=== PATIENT | female | born 1985 ===

== ENCOUNTER 2023-01-13 16:43 | Emergency (ER) | payer MEDICAID, SELFPAY ==
[2023-01-13 17:38] LABS: MANUAL DIFF FLAG NO
[2023-01-13 17:39] LABS: Basophils Absolute Auto 0.1 X10*3/uL (0.0-0.2); Basophils Percent Auto 0.7 % (0-2); Eosinophils Absolute Auto 0.2 X10*3/uL (0.0-0.4); Eosinophils Percent Auto 1.5 % (0-4); Hematocrit 39.5 % (37.0-47.0); Hemoglobin 13.2 g/dl (12.0-16.0); Imm Gran Abs Auto 0.04 X10*3/uL (0.00-0.03); Imm Gran Pct Auto 0.4 % (0.0-0.4); Lymphocytes Absolute Auto 3.7 X10*3/uL (1.2-4.9); Lymphocytes Percent Auto 34.3 % (20-40); Mean Corpuscular HGB Conc 33.4 g/dl (31.0-35.0); Mean Corpuscular Hemoglobin 29.2 pg (27.0-33.0); Mean Corpuscular Volume 87.4 fL (80.0-98.0); Mean Platelet Volume 9.2 fL (9.4-12.3); Monocytes Absolute Auto 1.1 X10*3/uL (0.1-1.2); Monocytes Percent Auto 9.8 % (2-11); Neutrophils Absolute Auto 5.7 x10*3/uL (2.0-8.3); Neutrophils Percent Auto 53.3 % (45-73); Platelet Count 367 X10*3/uL (160-400); Red Blood Count 4.52 X10*6/uL (4.20-5.50); Red Cell Distribution Width 13.7 % (11.0-16.0); White Blood Count 10.8 X10*3/uL (4.8-10.8)
[2023-01-13 17:46] LABS: Prothrombin Time 12.1 SEC (11.1-13.3)
[2023-01-13 17:49] LABS: Partial Thromboplastin Time 34.5 SEC (26.0-36.4)
[2023-01-13 17:53] LABS: Alanine Aminotransferase 7 U/L (0-31); Albumin Level 3.9 g/dL (3.5-5.0); Alkaline Phosphatase 65 U/L (39-117); Anion Gap 16 (12-20); Aspartate Amino Transferase 10 U/L (5-31); Bilirubin Direct < 0.2 mg/dL (0.0-0.5); Bilirubin Total 0.2 mg/dL (0.0-1.0); Blood Urea Nitrogen 6 mg/dL (9-16); Calcium 9.3 mg/dL (8.4-10.2); Carbon Dioxide 21 mmol/L (22-29); Chloride 106 mmol/L (96-108); Estimated Glomerular Filt Rate > 60; Glucose Random 90 mg/dL (60-115); Magnesium 2.1 mg/dL (1.6-2.6); Potassium 3.9 mmol/L (3.3-5.1); Sodium 139 mmol/L (135-145); Total Protein 6.9 g/dL (6.5-8.0)
[2023-01-13 17:59] LABS: HCG Quantitative < 2 mIU/mL
[2023-01-13 18:07] VITALS: BP 131/67; PULSE 70; RESP 18; TEMP 36.1; O2SAT 99; BMI 24.7
--- NOTE | 2023-01-13 18:07 | ED_ITS ---
HPI - Female Genitourinary General Chief complaint: Vaginal Bleeding Stated complaint: vag bleeding 30 days/lower back pain Time Seen by Provider: 01/13/23 20:39 Source: other History of Present Illness HPI Narrative: I reviewed the triage note, patient has eloped, triage note states that patient had what she felt was vaginal bleeding since December 06 with lower back pain and dizziness. Related Data Previous Rx's Medication Instructions Recorded cefdinir 300 mg capsule 300 mg PO BID 7 days #14 caps 01/13/23 Allergies Allergy/AdvReac Type Severity Reaction Status Date / Time No Known Allergies Allergy Verified 01/13/23 17:21 [facility] Social History Social History Advance Directives: No Advance Directives Information Provided: No Physical Exam Vital Signs: Vital Signs: Last Vital Signs Temp 97.8 F 01/13/23 20:39 Pulse 57 01/13/23 20:39 Resp 18 01/13/23 20:39 BP 116/75 01/13/23 20:39 Pulse Ox 98 01/13/23 20:39 O2 Del Method Room Air 01/13/23 20:39 BMI result Body Mass Index 24.7 Course Course Course Narrative: RME - 37 yo female presenting to the ER for evaluation of heavy vaginal bleeding since December 06. History of irregular menstrual cycles but never prolonged menses. Associated with dizziness, weakness and fatigue. No pelvic pain. +low back pain. Plan: labs, coags, UA Medical Decision Making Medical Decision Making MDM Narrative: Reviewed all investigations and there is no leukocytosis or left shift and no anemia or thrombocytopenia. Coagulation studies are grossly within normal limits and chemistry indices do not demonstrate any electrolyte or liver enzyme abnormalities, there is no KHUSHBU. Beta hCG is negative, however the urinalysis is grossly positive and suspect given the back pain patient likely has a pyelonephritis. However, patient has eloped but will contact patient and inform her that a prescription for antibiotics has been sent. There is no evidence to suggest prolonged vaginal bleeding and likely the blood was coming from patient's urinary tract infection. There is no evidence of anemia and on review of vital signs she is neither tachypneic nor is she tachycardic. There is no evidence of febrile status and will send antibiotics to her pharmacy there is documented no known allergies. Nursing staff is tried twice to call the patient but no answer and voicemail was not working. Lab Data 01/13/23 17:33 01/13/23 17:33 Labs: Lab Results 01/13/23 01/13/23 01/13/23 Range/Units 17:33 17:33 17:33 WBC 10.8 (4.8-10.8) X10*3/uL RBC 4.52 (4.20-5.50) X10*6/uL Hgb 13.2 (12.0-16.0) g/dl Hct 39.5 (37.0-47.0) % MCV 87.4 (80.0-98.0) fL MCH 29.2 (27.0-33.0) pg MCHC 33.4 (31.0-35.0) g/dl RDW 13.7 (11.0-16.0) % Plt Count 367 (160-400) X10*3/uL MPV 9.2 L (9.4-12.3) fL Immature Gran % (Auto) 0.4 (0.0-0.4) % Neut % (Auto) 53.3 (45-73) % Lymph % (Auto) 34.3 (20-40) % [place] % (Auto) 9.8 (2-11) % Eos % (Auto) 1.5 (0-4) % Baso % (Auto) 0.7 (0-2) % Lymph # (Auto) 3.7 (1.2-4.9) X10*3/uL [place] # (Auto) 1.1 (0.1-1.2) X10*3/uL Eos # (Auto) 0.2 (0.0-0.4) X10*3/uL Baso # (Auto) 0.1 (0.0-0.2) X10*3/uL Abs Immat Gran (auto) 0.04 H (0.00-0.03) X10*3/uL Absolute Neuts (auto) 5.7 (2.0-8.3) x10*3/uL Absolute Nucleated RBC 0.000 (0.0-0.012) X10*3/uL Nucleated RBC % (auto) 0.0 (0.0-0.2) /100WBC PT 12.1 (11.1-13.3) SEC INR 1.0 (0.9-1.1) APTT 34.5 (26.0-36.4) SEC Sodium 139 (135-145) mmol/L Potassium 3.9 (3.3-5.1) mmol/L Chloride 106 (96-108) mmol/L Carbon Dioxide 21 L (22-29) mmol/L Anion Gap 16 (12-20) BUN 6 L (9-16) mg/dL Creatinine 0.66 (0.5-1.4) mg/dL Estim Creat Clear Calc TNP Estimated GFR > 60 Random Glucose 90 (60-115) mg/dL Calcium 9.3 (8.4-10.2) mg/dL Magnesium 2.1 (1.6-2.6) mg/dL Total Bilirubin 0.2 (0.0-1.0) mg/dL Direct Bilirubin < 0.2 (0.0-0.5) mg/dL AST 10 (5-31) U/L ALT 7 (0-31) U/L Alkaline Phosphatase 65 (39-117) U/L Total Protein 6.9 (6.5-8.0) g/dL Albumin 3.9 (3.5-5.0) g/dL Beta HCG, Quant < 2 mIU/mL Urine Color Urine Appearance Urine pH (5.0-9.0) Ur Specific [place] (1.005-1.025) Urine Protein (Neg-Trace) mg/dL Urine Glucose (UA) (Negative) mg/dL Urine Ketones (Negative) mg/dL Urine Blood (Negative) Urine Nitrite (Negative) Ur Leukocyte Esterase (Negative) Urine RBC (0-2) /HPF Urine WBC (0-5) /HPF Ur Squamous Epith Cells (0-2) /HPF Urine Bacteria (None Seen) Hyaline Casts (0-2) /LPF 01/13/23 01/13/23 Range/Units 17:33 18:14 WBC (4.8-10.8) X10*3/uL RBC (4.20-5.50) X10*6/uL Hgb (12.0-16.0) g/dl Hct (37.0-47.0) % MCV (80.0-98.0) fL MCH (27.0-33.0) pg MCHC (31.0-35.0) g/dl RDW (11.0-16.0) % Plt Count (160-400) X10*3/uL MPV (9.4-12.3) fL Immature Gran % (Auto) (0.0-0.4) % Neut % (Auto) (45-73) % Lymph % (Auto) (20-40) % [place] % (Auto) (2-11) % Eos % (Auto) (0-4) % Baso % (Auto) (0-2) % Lymph # (Auto) (1.2-4.9) X10*3/uL [place] # (Auto) (0.1-1.2) X10*3/uL Eos # (Auto) (0.0-0.4) X10*3/uL Baso # (Auto) (0.0-0.2) X10*3/uL Abs Immat Gran (auto) (0.00-0.03) X10*3/uL Absolute Neuts (auto) (2.0-8.3) x10*3/uL Absolute Nucleated RBC (0.0-0.012) X10*3/uL Nucleated RBC % (auto) (0.0-0.2) /100WBC PT (11.1-13.3) SEC INR (0.9-1.1) APTT (26.0-36.4) SEC Sodium (135-145) mmol/L Potassium (3.3-5.1) mmol/L Chloride (96-108) mmol/L Carbon Dioxide (22-29) mmol/L Anion Gap (12-20) BUN (9-16) mg/dL Creatinine (0.5-1.4) mg/dL Estim Creat Clear Calc Estimated GFR Random Glucose (60-115) mg/dL Calcium (8.4-10.2) mg/dL Magnesium (1.6-2.6) mg/dL Total Bilirubin (0.0-1.0) mg/dL Direct Bilirubin (0.0-0.5) mg/dL AST (5-31) U/L ALT (0-31) U/L Alkaline Phosphatase (39-117) U/L Total Protein (6.5-8.0) g/dL Albumin (3.5-5.0) g/dL Beta HCG, Quant < 2 mIU/mL Urine Color [place] A Urine Appearance Cloudy Urine pH 6.0 (5.0-9.0) Ur Specific [place] 1.010 (1.005-1.025) Urine Protein 30 (1+) H (Neg-Trace) mg/dL Urine Glucose (UA) Negative (Negative) mg/dL Urine Ketones Negative (Negative) mg/dL Urine Blood Large (3+) H (Negative) Urine Nitrite Negative (Negative) Ur Leukocyte Esterase Trace H (Negative) Urine RBC >20 H (0-2) /HPF Urine WBC 6-10 H (0-5) /HPF Ur Squamous Epith Cells 11-20 (0-2) /HPF Urine Bacteria 2+ (None Seen) Hyaline Casts 0-2 (0-2) /LPF Discharge Plan Discharge Clinical Impression: Pyelonephritis Patient Disposition: Elopement Instructions: Kidney Infection (ED) Prescriptions: New cefdinir 300 mg capsule 300 mg PO BID 7 Days Qty: 14 0RF
[2023-01-13 18:32] LABS: Appearance Urine Cloudy; Color Urine Orange; Glucose Urine UA Negative (Negative); Leukocyte Esterase Urine Trace (Negative); Nitrite Urine Negative (Negative); UMIC TRIGGER UACC YES; Urine Blood Large (3+) (Negative); Urine Ketones Negative (Negative); Urine Protein 30 (1+) mg/dL (Neg-Trace)
[2023-01-13 18:33] LABS: Bacteria Urine 2+ (None Seen); Hyaline Casts Urine 0-2 /LPF (0-2); RBC Urine >20 /HPF (0-2); UACC Culture Trigger YES
[2023-01-13 20:39] VITALS: BP 116/75; PULSE 57; RESP 18; TEMP 36.6; O2SAT 98
[2023-01-13 21:25] LABS: HCG Quantitative < 2 mIU/mL
--- NOTE | 2023-01-13 21:42 | PC.NURSE ---
upon entry of the room, pt was not in room. not in testing rooms, pt eloped. Dr. Tye sy.
== END 2023-01-13 21:44 | disposition left against medical advice (07) ==
PROVIDERS: Physician Assistant; Emergency Provider Student in an Organized Health Care Education/Training Program
DX: N12 Tubulo-interstitial nephritis, not specified as acute or chronic (principal); M54.50 Low back pain, unspecified
CPT/HCPCS: 36415; 80048; 80076; 81001; 83735; 84702; 85025; 85610; 85730; 87086; 99283

== ENCOUNTER 2024-02-08 16:42 | Emergency (ER) | payer OTHER, SELFPAY ==
[2024-02-08 16:56] VITALS: BP 146/92; PULSE 76; RESP 18; TEMP 36.7; O2SAT 98; BMI 28.3
--- NOTE | 2024-02-08 16:59 | ED.GENADULT ---
HPI - General Adult General Chief complaint: Skin/Abscess/Foreign Body Stated complaint: left breast pain abscess Time Seen by Provider: 02/08/24 19:08 Source: patient Mode of arrival: ambulatory Limitations: no limitations History of Present Illness HPI narrative: Patient is a 39 year old female who presents to the emergency department for evaluation of persistent pain to the left breast. She states that she has been dealing with a recurrent abscess to her left breast. Reports onset earlier this year approximately 5 months. She has been treated with multiple courses of antibiotics. By her account her most recent course of antibiotics was approximately 4 weeks ago. She states that she had a superficial abscess that was drained and then she was referred to see a surgeon through the breast specialty center of [facility] (received referral from their Emergency Department). Reports that there was discussion of surgical procedure for drainage, however when it was determined that she is an active cigarette smoker she was advised that she needed to have smoking cessation for 6 weeks prior to any procedure. She states that she continues to have significant pain to the breast and she is requesting surgical drainage at this time as well as pain control. She denies fevers or chills, denies any active drainage. Related Data Previous Rx's ?Medication ?Instructions ?Recorded cefdinir 300 mg capsule 300 mg PO BID 7 days #14 caps 01/13/23 cephalexin 500 mg capsule 500 mg PO QID #21 caps 02/08/24 oxycodone 5 mg tablet 5 mg PO Q6H PRN pain #10 tabs 02/08/24 Allergies Allergy/AdvReac Type Severity Reaction Status Date / Time No Known Allergies Allergy Verified 02/08/24 16:59 Review of Systems Review of Systems: Yes all other systems are reviewed and are negative PMFSH Past Medical History Attestation statement: The following information was validated with the patient. Source: old records reviewed Social History Social History Advance Directives: No Advance Directives Information Provided: No Do you have a plan to hurt others: No Plan Physical Exam ED Vital Signs: Vital Signs - 24 hr 02/08/24 16:56 02/08/24 19:18 Temperature 98.1 F 97.8 F Pulse Rate 76 72 Respiratory Rate 18 16 Blood Pressure 146/92 H 108/78 Pulse Oximetry 98 97 Oxygen Delivery Method Room Air Room Air BMI result Body Mass Index 28.3 Appearance: Alert.?Oriented to person, place and time. No acute distress.?Normal affect. Neck: Normal inspection.? Neck supple.?? CVS: Heart sounds normal. Normal heart rate and rhythm.? Pulses normal.? Chest: Performed with compound filler, ED debug technician, area of erythema approximately 5 cm X 3 cm to the left breast around 06:00 o'clock-09:00 o'clock of the areola that does not extend. There is no dimpling or induration it is warm to touch. No obvious superficial abscess or area of fluctuance no active drainage. There is a firmness below this area that feels deeper.? No axillary lymphadenopathy. Right breast without palpable masses or lumps. Respiratory: No respiratory distress.? Lung sounds clear to auscultation bilaterally?? Abdomen: Soft and non-tender. Normoactive bowel sounds. ? Skin: Skin warm and dry.? Normal skin color.? Extremities: No lower extremity edema.? No calf ttp? Neuro: Moves all extremities spontaneously. Sensation intact bilaterally. Ambulates with normal steady gait. Course Course Course Narrative: RME performed by Brenda Cary PA-C. Patient is a 39 year old assigned female at presenting to the emergency department with a left breast abscess. Patient states she has been dealing with a left breast abscess for months, has been on multiple antibiotic courses, and was set to have surgery with a [facility] surgeon. Patient states that the surgeon changed her mind after she found out she is a smoker. Detailed physical exam and review of systems are deferred to the tool room supervisor. Labs ordered. Patient placed back in the waiting room pending room availability and results. Medical Decision Making Medical Decision Making MDM Narrative: Patient is a 39-year-old female who presents emergency department for evaluation of persistent left breast abscess as per HPI. At the time of my examination she has an area of erythema approximately 5 cm X 3 cm to the left breast around 06:00 o'clock-09:00 o'clock of the areola that does not extend. There is no dimpling or induration it is warm to touch. No obvious superficial abscess or area of fluctuance no active drainage. There is a firmness below this area that feels deeper. We discussed having an ultrasound imaging in the emergency department for evaluation of abscess versus possible breast mass, she declines at this time. She would like emergent surgical drainage. At this time I do not see indication for such. Serum labs were obtained she has no leukocytosis she is not anemic no thrombocytopenia. Chemistries revealing no electrolyte derangement or KHUSHBU. Mildly elevated CRP at 1.39 with normal ESR. I am concerned that there is a superficial cellulitis for which I will treat her with cephalexin, provided with short course of oxycodone to use for pain unrelieved by acetaminophen/ibuprofen and instructed on precautions with use, mass that was reviewed there are no current conflicts. I did provide her as well for contact information with the general surgeon office associated with [facility] as she would like to discuss a 2nd opinion for drainage. Overall appears well considering, she is notably uncomfortable and she was offered a dose of oxycodone in the emergency department, does not have constitutional symptoms or signs of systemic illness at this time. Stable for discharge home Differential Diagnosis Differential Diagnoses: The differential diagnosis associated with the presentation includes (See narrative above) Admission/Observation Consideration of admission/observation: Escalation of care including admission/observation considered Lab Data MDM Lab Attestation statement: I reviewed the patient's lab results. (See narrative above) 02/08/24 17:38 02/08/24 17:38 Labs: Lab Results 02/08/24 Range/Units 17:38 WBC 9.6 (4.8-10.8) X10*3/uL RBC 5.07 (4.20-5.50) X10*6/uL Hgb 14.8 (12.0-16.0) g/dl Hct 44.3 (37.0-47.0) % MCV 87.4 (80.0-98.0) fL MCH 29.2 (27.0-33.0) pg MCHC 33.4 (31.0-35.0) g/dl RDW 13.3 (11.0-16.0) % Plt Count 387 (160-400) X10*3/uL MPV 9.7 (9.4-12.3) fL Immature Gran % (Auto) 0.4 (0.0-0.4) % Neut % (Auto) 51.9 (45-73) % Lymph % (Auto) 36.1 (20-40) % [place] % (Auto) 8.6 (2-11) % Eos % (Auto) 2.2 (0-4) % Baso % (Auto) 0.8 (0-2) % Lymph # (Auto) 3.5 (1.2-4.9) X10*3/uL [place] # (Auto) 0.8 (0.1-1.2) X10*3/uL Eos # (Auto) 0.2 (0.0-0.4) X10*3/uL Baso # (Auto) 0.1 (0.0-0.2) X10*3/uL Abs Immat Gran (auto) 0.04 H (0.00-0.03) X10*3/uL Absolute Neuts (auto) 5.0 (2.0-8.3) x10*3/uL Absolute Nucleated RBC 0.000 (0.0-0.012) X10*3/uL Nucleated RBC % (auto) 0.0 (0.0-0.2) /100WBC ESR 11 (0-20) MM/HR Sodium 140 (135-145) mmol/L Potassium 4.1 (3.3-5.1) mmol/L Chloride 105 (96-108) mmol/L Carbon Dioxide 28 (22-29) mmol/L Anion Gap 11 L (12-20) BUN 10 (9-16) mg/dL Creatinine 0.74 (0.5-1.4) mg/dL Estim Creat Clear Calc 93.7 Estimated GFR > 60 Random Glucose 90 (60-115) mg/dL Calcium 9.5 (8.4-10.2) mg/dL Magnesium 2.1 (1.6-2.6) mg/dL Total Bilirubin 0.2 (0.0-1.0) mg/dL AST 15 (5-31) U/L ALT 12 (0-31) U/L Alkaline Phosphatase 76 (39-117) U/L C-Reactive Protein 1.39 H (< or = 0.50) mg/dL Total Protein 7.7 (6.5-8.0) g/dL Albumin 4.4 (3.5-5.0) g/dL Hold Red Top Cancelled Independent Historian Clinical information obtained from an independent historian. History obtained from or confirmed by: Spouse External Record Review External record reviewed: Other (QUARTER DOPER, see narrative above) Prescription Management I considered prescription management with: Pain Medication and Antibiotic Discharge Plan Discharge Clinical Impression: Abscess of breast Patient Disposition: Home, Self-Care Additional Instructions: As discussed, please continue conservative treatment including warm compresses, You can take ibuprofen 200 mg, 3 tablets (600mg) every 6-8 hours as needed for pain, in addition to Tylenol 500 mg, 2 tablets (1,000mg) every 4-6 hours as needed for pain, but not to exceed 3 doses daily (3,000mg).? For plain that is unrelieved by ibuprofen/Tylenol, I have provided a short prescription for oxycodone which has been sent to your pharmacy. This is a narcotic medication. It may be addicting. It can make you drowsy. You should not drive, drink alcohol, or work while taking this medication. I have provided you with contact information for our general surgeons office, you may contact their office tomorrow morning to discuss a new patient appointment for a 2nd opinion. Prescriptions: New oxycodone 5 mg tablet 5 mg PO Q6H PRN (Reason: pain) Qty: 10 0RF Rx Instructions: Partial Fill upon patient request. cephalexin 500 mg capsule 500 mg PO QID Qty: 21 0RF No Action cefdinir 300 mg capsule 300 mg PO BID 7 Days Qty: 14 0RF Referrals: [facility] General Surgeons [Provider Group] Print Language: Macedonian
[2024-02-08 17:52] LABS: MANUAL DIFF FLAG NO
[2024-02-08 17:58] LABS: Basophils Absolute Auto 0.1 X10*3/uL (0.0-0.2); Basophils Percent Auto 0.8 % (0-2); Eosinophils Absolute Auto 0.2 X10*3/uL (0.0-0.4); Eosinophils Percent Auto 2.2 % (0-4); Hematocrit 44.3 % (37.0-47.0); Hemoglobin 14.8 g/dl (12.0-16.0); Imm Gran Abs Auto 0.04 X10*3/uL (0.00-0.03); Imm Gran Pct Auto 0.4 % (0.0-0.4); Lymphocytes Absolute Auto 3.5 X10*3/uL (1.2-4.9); Lymphocytes Percent Auto 36.1 % (20-40); Mean Corpuscular HGB Conc 33.4 g/dl (31.0-35.0); Mean Corpuscular Hemoglobin 29.2 pg (27.0-33.0); Mean Corpuscular Volume 87.4 fL (80.0-98.0); Mean Platelet Volume 9.7 fL (9.4-12.3); Monocytes Absolute Auto 0.8 X10*3/uL (0.1-1.2); Monocytes Percent Auto 8.6 % (2-11); Neutrophils Percent Auto 51.9 % (45-73); Platelet Count 387 X10*3/uL (160-400); Red Blood Count 5.07 X10*6/uL (4.20-5.50); Red Cell Distribution Width 13.3 % (11.0-16.0); White Blood Count 9.6 X10*3/uL (4.8-10.8)
[2024-02-08 18:22] LABS: Alanine Aminotransferase 12 U/L (0-31); Albumin Level 4.4 g/dL (3.5-5.0); Alkaline Phosphatase 76 U/L (39-117); Anion Gap 11 (12-20); Aspartate Amino Transferase 15 U/L (5-31); Bilirubin Total 0.2 mg/dL (0.0-1.0); Blood Urea Nitrogen 10 mg/dL (9-16); C Reactive Protein 1.39 mg/dL (< or = 0.50); Calcium 9.5 mg/dL (8.4-10.2); Carbon Dioxide 28 mmol/L (22-29); Chloride 105 mmol/L (96-108); Creatinine Clr Calc Pharmacy 93.7; Estimated Glomerular Filt Rate > 60; Glucose Random 90 mg/dL (60-115); Magnesium 2.1 mg/dL (1.6-2.6); Potassium 4.1 mmol/L (3.3-5.1); Sodium 140 mmol/L (135-145); Total Protein 7.7 g/dL (6.5-8.0)
[2024-02-08 18:41] LABS: Erythrocyte Sedimentation Rate 11 MM/HR (0-20)
[2024-02-08 19:18] VITALS: BP 108/78; PULSE 72; RESP 16; TEMP 36.6; O2SAT 97
[2024-02-08] MEDS: oxyCODONE HCl Immed Release 5 MG TABLET PO (21:12)
[2024-02-08 21:26] VITALS: BP 108/78; PULSE 72; RESP 16; TEMP 36.6; O2SAT 97
== END 2024-02-08 21:27 | disposition home or self-care (01) ==
PROVIDERS: Physician Assistant Medical; Emergency Provider Internal Medicine
DX: N61.1 Abscess of the breast and nipple (principal); N64.4 Mastodynia; F17.210 Nicotine dependence, cigarettes, uncomplicated; Z79.899 Other long term (current) drug therapy
CPT/HCPCS: 36415; 80053; 83735; 85025; 85652; 86140; 99283

== ENCOUNTER 2024-02-17 09:08 | Outpatient (AMB) | payer OTHER, SELFPAY ==
--- NOTE | 2024-02-17 09:15 | A.OFFVIS_ITS ---
Vital Signs 02/17/24 09:25 Height 5 ft 2 in Weight 156 lb BMI 28.5 BP 132/78 Blood Pressure Location Rt brachial Position Sitting Pulse 71 Intake Visit Reasons: abscess of breast Intake Note: Patient referred for abscess on Lt breast X5m. Keeps getting infected for the past year. Finished cephalexin course. Patient c/o: oozing clear discharge, pressure, pain. Reports hx of same problem on rt br but had gland on nipple extracted in [place] about 7 yrs ago. 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 She has had I&D of this at least on 2 occasions. She is currently completing antibiotic course. She has had antibiotics for several months time with minimal complete response. Interestingly, patient had the same issue with the contralateral right breast and eventually had excision of the cyst/ductal area which resolved the problem. This was performed in [place]. Chart was reviewed and patient evaluated [facility] Family History (Updated 02/17/24 @ 09:21 by ISAIAH Saldaña) Maternal Grandmother Cervical cancer Social History (Updated 02/17/24 @ 09:22 by ISAIAH Saldaña) Alcohol intake: current Alcohol intake frequency: holidays/special occasions only Cigarettes Per Day: 5 Substance Use Type: Marijuana Physical Exam Vital Signs: Last Vital Signs Pulse 71 02/17/24 09:25 BP 132/78 02/17/24 09:25 BMI result Body Mass Index 28.5 Chest Other: Chest breath sounds bilaterally, HS 1 in 2. Right breast within normal limits. Mindy areolar scar from previous surgery noted. Left breast no obvious other mass, discharge, adenopathy or skin changes. Patient has a draining sinus tract at the 10 o'clock position of the Mindy areolar area. Mild erythema. With pressure no obvious purulence drained. 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 Current plan is to treat the patient with antibiotics and the Thera colo off in the arrange for excision of this duct/cyst area of the left breast. Risks, benefits, alternatives of the procedure reviewed with the patient included but not limited to bleeding, infection, recurrence, numbness, pain, scarring and the patient wishes to proceed. All questions answered. Arrangements were made for this. Medications: New cephalexin 500 mg PO TID 30 caps 0RF ibuprofen 800 mg PO Q8H PRN 30 tabs 0RF pain Discontinued cefdinir Discontinued Reason: Patient no longer taking 300 mg PO BID 7 days 14 caps 0RF oxycodone Partial Fill upon patient request. Discontinued Reason: Patient no longer taking 5 mg PO Q6H PRN 10 tabs 0RF pain cephalexin Discontinued Reason: Patient Completed Course 500 mg PO QID 21 caps 0RF Coding Level of Care Code New Pt Level 5 (38594) Diagnoses Breast abscess N61.1 Occlusion of lactiferous duct of left breast N64.89
[2024-02-17 09:25] VITALS: BP 132/78; PULSE 71; BMI 28.5
== END 2024-02-17 09:46 | disposition home or self-care (01) ==
PROVIDERS: Visit Provider Surgery
DX: N61.1 Abscess of the breast and nipple (principal); N64.89 Other specified disorders of breast
CPT/HCPCS: 99204

== ENCOUNTER → 2024-02-17 09:08 | Outpatient (BNVA) | payer OTHER, SELFPAY | PROVIDERS: Visit Provider Surgery | DX: N61.1 Abscess of the breast and nipple (principal); N64.89 Other specified disorders of breast | CPT/HCPCS: 99202 ==

== ENCOUNTER 2024-02-26 07:47 | Outpatient (AMB) | payer OTHER, SELFPAY ==
--- NOTE | 2024-02-26 07:51 | MHC.PC.OV ---
Vital Signs 02/26/24 07:52 Height 5 ft 2 in Weight 155 lb BMI 28.3 BP 104/62 Blood Pressure Location Lt brachial Position Sitting Pulse 60 Pulse Source Pulse Oximeter Pulse Oximetry (%) 98 Oxygen Delivery Method Room Air Intake Visit Reasons: new patient Allergies No Known Allergies Allergy (Verified 02/26/24 08:14) Medication List - Last Reconciled 02/26/24 by Sejal Xavier PA-C cephalexin 500 mg PO TID ibuprofen 800 mg PO Q8H PRN Tobacco use date assessed: 02/26/24 Dental Screening Dental Screen Date: 02/26/24 Did you have a dental visit in the last 12 months?: Yes Did you have a dental problem in the last 6 months where you did not have access to dental care?: No Was dental information given to patient?: Patient has dentist HPI new patient HPI Details 39 year old female coming to the office for the first time. In review of the notes, patient was seen in [facility] 02/08/2024 for left breast pain she has previously been seen by [facility] surgery but patient would have to stop smoking for 6 weeks prior to the procedure. Advised to continue with warm compress and pain management with ibuprofen/tylenol and oxycodone. Advised to follow up with general surgery. Patient was seen by [facility] general surgery and will be booked for drainage and removal of abscess. Patient states she is feeling generally well and has no additional concerns outside of the breast abscess. She states the pain in breast radiates into the chest and armpit. She was previously treated in [place] for anxiety and PTSD with Hydroxyzine and Seroquel and was seeing a counselor regularly. 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 She also was bitten by a dog several years ago and was scheduled to have nasal reconstructive surgery but left [place] before having it done. [facility] Surgical History (Updated 02/26/24 @ 08:16 by Sejal Xavier PA-C) History of mandibular surgery Family History (Updated 02/26/24 @ 07:59 by Jenae Pa CMA) Maternal Grandmother Cervical cancer Mother Addiction to drug Father Addiction to drug Brother No problems noted. Other Mental health disorder Substance use disorder Social History (Updated 02/17/24 @ 09:22 by ISAIAH Saldaña) Housing: Apartment Alcohol intake: current Alcohol intake frequency: holidays/special occasions only Patient Tobacco Use Status: Current everyday Tobacco user Tobacco use type: Cigarette Cigarettes Per Day: 6 e-Cigarette/Vaping Use: Currently Using Second Hand Smoke Exposure: Yes Substance Use Type: Marijuana service: No Current occupational status: employed Current occupation: [employer] Current occupational exposures/hazards: No Cognitive needs: No Hearing needs: No Vision needs: Yes Female Reproductive History Menstrual control method: none Total pregnancies: 0 History of abnormal pap smear: No Questionnaire PHQ-9 Over the last 2 weeks, how often have you been bothered by any of the following problems? 1. Little interest or pleasure in doing things: not at all 2. Feeling down, depressed, or hopeless: not at all 3. Trouble falling or staying asleep, or sleeping too much: not at all 4. Feeling tired or having little energy: not at all 5. Poor appetite or overeating: not at all 6. Feeling bad about yourself - or that you are a failure or have let yourself or your family down: not at all 7. Trouble concentrating on things, such as reading the newspaper or watching television: not at all 8. Moving or speaking so slowly that other people could have noticed. Or the opposite - being so fidgety or restless that you have been moving around a lot more than usual: not at all 9. Thoughts that you would be better off or of hurting yourself in some way: not at all Total score: 0 Depression Screening Interpretation: Negative Depression Screening Done: Yes 33452 - PHQ-9 Billing: Yes Source: Developed by Drs. Praneeth Starks, Emma Betancourt, Rosalio Brar and colleagues, with an educational maxwell from [employer]. Thrive Questionnaire Date Thrive assessed: 02/26/24 I am a: Patient What is your living situation today?: I have a steady place to live Within the past 12 months, did the food you bought not last and you didn't have the money to get more?: Never true Within the past 12 months, did you worry whether your food would run out before you got money to buy more?: Never true Do you have trouble paying for medicines?: No Do you have trouble getting transportation to medical appointments?: No Do you have trouble paying your heating and electricity bill?: No Do you have trouble taking care of your child, family member or friend?: No Do you have trouble with day-to-day activities such as bathing, preparing meals, shopping, managing finances, etc.?: No Are you currently unemployed and looking for a job?: No Are you interested in more education?: No Please select the resources that you would like help with: None Currently or been in a relationship where the following occur: No concerns reported THRIVE Score: 0 AUDIT C Alcohol Use Questionnaire (AUDIT-C) 1. How often do you have a drink containing alcohol?: Monthly or less 2. How many drinks containing alcohol do you have on a typical day when you are drinking?: 1 or 2 3. How often do you have six or more drinks on one occasion?: Never Total Score: 1 STEVENSON-7 AMB Questionnaire STEVENSON-7 Date STEVENSON - 7 assessed: 02/26/24 Feeling nervous, anxious, or on edge: 1 = Several days Not being able to stop or control worryin = Several days Worrying too much about different things: 1 = Several days Trouble relaxin = Several days Being so restless that it is hard to sit still: 1 = Several days Becoming easily annoyed or irritable: 1 = Several days Feeling afraid as if something awful might happen: 1 = Several days Total STEVENSON-7 score (0-4 normal; 5-9 mild; 10-14 moderate; 15-21 severe): 7 Source: Developed by Drs. Praneeth Starks, Emma Betancourt, Rosalio Brar and colleagues, with an educational maxwell from [employer]. STEVENSON-7 Assessment Billing STEVENSON-7 Assessment Tool: STEVENSON-7 Assessment 82579 Review of Systems Const Denies body aches, Denies fatigue, Denies fever(s), Denies frequent falls, Denies headache(s) and Denies weakness Eyes Reports no additional complaints and Denies change in vision ENT Denies dysphagia, Denies dizziness, Denies facial pain, Denies headache(s), Denies nasal congestion and Denies odynophagia Card Denies chest pain, Denies syncope, Denies irregular heart rhythm, Denies leg edema, Denies lightheadedness and Denies dyspnea Resp Denies cough and Denies dyspnea GI Denies constipation, Denies dysphagia, Denies dyspepsia, Reports diarrhea (from ABX), Reports nausea (from ABX), Denies odynophagia and Denies vomiting Denies urinary frequency, Denies dysuria, Denies urinary hesitancy and Denies urinary urgency Musc Denies back pain and Denies myalgias Skin/Breast Reports as per HPI Neuro Denies dizziness, Denies syncope, Denies frequent falls, Denies headache(s) and Denies weakness Psych Reports no additional complaints Endo Denies fatigue Physical exam (Primary Care) Vital Signs: Last Vital Signs Pulse 60 02/26/24 07:52 BP 104/62 02/26/24 07:52 Pulse Ox 98 02/26/24 07:52 Oxygen Delivery Method Room Air 02/26/24 07:52 BMI result Body Mass Index 28.3 Tobacco/Smoking Status: Tobacco use Status Tobacco use date assessed 02/26/24 02/26/24 08:03 Patient Tobacco Use Status Current everyday Tobacco 02/26/24 08:03 Tobacco use type Cigarette 02/26/24 08:03 e-Cigarette/Vaping Use Currently Using 02/26/24 08:03 Are you ready to quit: Yes Tobacco cessation counseling provided: Yes Items discussed: Nicotine replacement Relapse Prevention: discussed the importance of a supportive environment Number of minutes spent counselin CPT code: 55556 - 4-10 Minutes PHQ-9: PHQ-9 Score PHQ-9: Total score 0 02/26/24 08:04 Depression Screening Interpretation: Negative Thrive Assessment: Date of Thrive Assessment Date Thrive assessed 02/26/24 02/26/24 07:53 Currently or been in a relationship where the following occur: No concerns reported Const General: cooperative, healthy appearing, comfortable and no acute distress Orientation/consciousness: patient oriented x3 HENMT Head: Yes normocephalic Ears: hearing grossly normal bilaterally, external ears normal, TM's normal bilaterally and EAC's normal General nose exam: Normal external nose present Face and sinus: Yes normal facial exam and Yes sinuses nontender Mouth: Normal oral and palatal mucosa present and tongue normal Throat: Yes posterior oropharynx normal Eyes General: appearance normal, both eyes and all related structures Conjunctivae: conjunctivae normal Pupils: Equal, round and reactive pupils present EOM: EOMs intact bilaterally and No Nystagmus present Neck Neck: Yes normal visual inspection, Yes full ROM and Yes no lymphadenopathy Chest Other: Tenderness to left side of chest and ribs Resp Effort & Inspection: normal respiratory effort Auscultation: clear to auscultation bilaterally, no crackles, no rales, no rhonchi, no wheezes and breath sounds present Cardio Rate: regular rate Rhythm: regular rhythm Peripheral pulses: radial pulses present and dorsalis pedis present GI Inspection: Yes normal to inspection and No Abdominal wall edema Palpation (GI): Soft to palpation, not firm and nontender Auscultation: normal bowel sounds Rectal Exam - Female: deferred General: Yes no CVA tenderness Back/Spine/Pelvis Back: no CVA tenderness Skin General skin exam: no rashes or lesions noted Neuro General: patient oriented x3 Cranial nerves: Yes Equal, round and reactive pupils present, Yes Midline tongue present, Yes Ability to bilaterally elevate shoulders present and No Nystagmus present Gait exam (Neuro): Normal gait present Extrem General: Yes normal to inspection, Yes full ROM, No no pedal edema and No edema Psych Speech and movement: Normal speech and movement present Affect: normal affect Insight: Good insight present (Psych) Judgement: Good judgement present (Psych) Assessment and Plan Assessment & Plan (1) Breast abscess: Code(s): N61.1 - Abscess of the breast and nipple Plan: Seen by Dr. Villarreal and General surgery and due to be scheduled for surgical drainage and removal of abscess. Blood work up-to-date and did place order for EKG if needed preoperatively. Patient is at moderate risk for procedure due to chronic tobacco use and risk for delayed wound healing and infection. Reviewed with the patient that no surgery is completely free of risk and that this examination is to assist the surgeon in reviewing informed consent. Patient is not currently on any blood thinners or antiplatelet medications advised patient to discontinue NSAIDs 7 days prior to surgery. (2) PTSD (post-traumatic stress disorder): Code(s): F43.10 - Post-traumatic stress disorder, unspecified Plan: Patient was previously seen by counselor and found this to be helpful. Referral to counseling placed today. (3) Anxiety: Code(s): F41.9 - Anxiety disorder, unspecified Plan: Patient was previously on Seroquel and hydroxyzine for anxiety as well as see a counselor. We will start hydroxyzine at this appointment and follow up in 3 months for review of medications. If patient feels anxiety is not well managed we can consider adding Seroquel. (4) Deviated septum: Code(s): J34.2 - Deviated nasal septum Plan: Referral to ENT placed today. Plan This note was constructed using voice recognition software. While every effort has been made to ensure accuracy and legal support specialist, still areas may have been included sometimes these areas may affect the content or meeting of the given symptoms. Total time spent caring for the patient today was 20 minutes. This includes time spent before the visit reviewing the chart, time spent during the visit, and time spent after the visit and documentation. Orders: Orders ECG 12 lead EKG Today Z01.818 - Encounter for other preprocedural examination Referrals Counseling Referral F41.9 - Anxiety disorder, unspecified, F43.10 - Post-traumatic stress disorder, unspecified Ear/Nose/Throat Referral J34.2 - Deviated nasal septum HEAD UP OPERATOR Referral Z00.00 - Encounter for general adult medical examination without abnormal findings Medications: New nicotine 1 patch transdermal DAILY 28 ea 0RF hydroxyzine HCl 25 mg PO BID 60 tabs 0RF anxiety Coding Level of Care Code New Pt Level 3 (74254) New Pt Prev Care 18-39yr(41807 Diagnoses Breast abscess N61.1 PTSD (post-traumatic stress disorder) F43.10 Anxiety F41.9 Deviated septum J34.2 Additional Codes STEVENSON-7 Assessment Billing - STEVENSON-7 Assessment Tool: STEVENSON-7 Assessment 74912 ([id number]) Vital Signs *Quality* - CPT code: 59776 - 4-10 Minutes ([id number])
[2024-02-26 07:52] VITALS: BP 104/62; PULSE 60; O2SAT 98; BMI 28.3
== END 2024-02-26 08:33 | disposition home or self-care (01) ==
DX: Z00.00 Encounter for general adult medical examination without abnormal findings (principal); N61.1 Abscess of the breast and nipple; F43.10 Post-traumatic stress disorder, unspecified; F41.9 Anxiety disorder, unspecified; J34.2 Deviated nasal septum
CPT/HCPCS: 99385

== ENCOUNTER → 2024-02-26 08:45 | Outpatient (REF) | payer OTHER, SELFPAY ==
--- NOTE | 2024-02-26 08:51 | ECG_ITS ---
Test Reason : pre op Blood Pressure : / mmHG Vent. Rate : 052 BPM Atrial Rate : 052 BPM P-R Int : 156 ms QRS Dur : 090 ms QT Int : 450 ms P-R-T Axes : -15 059 002 degrees QTc Int : 418 ms Sinus bradycardia Otherwise normal ECG No previous ECGs available Referred By: Sejal Xavier Electronically Signed By:GILES CHANG
== END ==
LOC: HO.CARD 08:45
DX: Z01.818 Encounter for other preprocedural examination (principal)
CPT/HCPCS: 93005

== ENCOUNTER 2024-03-03 11:12 | Day surgery (SDC) | payer OTHER, SELFPAY ==
--- NOTE | 2024-03-02 11:15 | P.HPSUR_ITS ---
Pre-Procedural Eval Section A - 24 Hr Update-Section A only Date of Service: 03/03/24 The patient is an INPATIENT: No Changes since office visit: No Cold of Flu in the past 2 weeks, No New Medical Problems, No Changes in Medication and No Patient answered all questions Section B - Complete if H&P > 30 days Chief Complaint: Abscess of the breast and nipple Allergies: Allergies Allergy/AdvReac Type Severity Reaction Status Date / Time No Known Allergies Allergy Verified 02/26/24 08:14 Review of Systems Sugical H&P ROS: Negative: Constitution, Cardiovascular, Respiratory, Neurological, Psychiatric, Hem-Onc, Allergic/Immunologic, Gastrointestinal, Genitourinary, Musculoskeletal, Integumentary, Endocrine and Eyes/Ears/Nose/Thr oat Exam Surgical H&P Exam: Normal: HEENT, Normal: Heart, Normal: Lungs, Normal: Extremities, Normal: Abdomen, Normal: Skin and Normal: Neurological Plan I have reviewed the history and physical and performed a pertinent physical examination on my patient. No changes have occurred unless specified. Time Spent With Patient Time: Total time managing care of this patient today ____ minutes.
--- NOTE | 2024-03-03 11:26 | MHC.SHP ---
Pre-Procedural Eval Section A - 24 Hr Update-Section A only Date of Service: 03/03/24 The patient is an INPATIENT: No Changes since office visit: No Cold of Flu in the past 2 weeks, No New Medical Problems, No Changes in Medication and No Patient answered all questions Section B - Complete if H&P > 30 days Chief Complaint: Abscess of the breast and nipple Allergies: Allergies Allergy/AdvReac Type Severity Reaction Status Date / Time No Known Allergies Allergy Verified 02/26/24 08:14 Plan I have reviewed the history and physical and performed a pertinent physical examination on my patient. No changes have occurred unless specified. Time Spent With Patient Time: Total time managing care of this patient today ____ minutes.
[2024-03-03 12:08] VITALS: BMI 27.8
[2024-03-03 12:22] VITALS: BP 103/67; PULSE 68; RESP 16; TEMP 36.6; O2SAT 96
[2024-03-03 12:46] LABS: Urine Pregnancy NEGATIVE (NEGATIVE)
[2024-03-03 12:47] LABS: UPreg QC Valid YES
--- NOTE | 2024-03-03 13:30 | P.CONAN_ITS ---
Documented by User: Chery Tan NP 03/01/24 13:41 HPI - Anesthesia Eval Consult details Narrative: 39yo F for excision of this duct/cyst area of the left breast Medically optimized per PCP [facility] Active Problems Active Problems: All Active Problems Pre-op evaluation (Acute) Deviated septum (Acute) PTSD (post-traumatic stress disorder) (Acute) Anxiety (Acute) Occlusion of lactiferous duct of left breast (Acute) Breast abscess (Acute) Family History Family History (Updated 02/26/24 @ 07:59 by Jenae Pa CMA) Maternal Grandmother Cervical cancer Mother Addiction to drug Father Addiction to drug Brother No problems noted. Other Mental health disorder Substance use disorder Surgical History Surgical History (Updated 02/26/24 @ 08:16 by Sejal Xavier PA-C) History of mandibular surgery Social History Social History (Updated 02/17/24 @ 09:22 by ISAIAH Saldaña) Housing: Apartment Alcohol intake: current Alcohol intake frequency: holidays/special occasions only Patient Tobacco Use Status: Current everyday Tobacco user Tobacco use type: Cigarette Cigarettes Per Day: 5 e-Cigarette/Vaping Use: Currently Using Second Hand Smoke Exposure: Yes Use of substances other than those prescribed or required for medical reasons: Yes Substance Use Type: Marijuana Are you DNR?: No Advance Directives: No Advance Directives Information Provided: Yes service: No Current occupational status: employed Current occupation: [employer] Current occupational exposures/hazards: No Cognitive needs: No Hearing needs: No Vision needs: Yes Meds Allergies Allergy/AdvReac Type Severity Reaction Status Date / Time No Known Allergies Allergy Verified 03/03/24 12:08 Exam Pertinent Lab Results Pertinent Lab Results: Laboratory Tests 02/08/24 17:38 WBC 9.6 Hgb 14.8 Hct 44.3 Plt Count 387 Sodium 140 Potassium 4.1 Chloride 105 BUN 10 Creatinine 0.74 Narrative Narrative: EKG 01/2024 Vent. Rate : 052 BPM Atrial Rate : 052 BPM P-R Int : 156 ms QRS Dur : 090 ms QT Int : 450 ms P-R-T Axes : -15 059 002 degrees QTc Int : 418 ms Sinus bradycardia Otherwise normal ECG No previous ECGs available Assessment and Plan Assessment Anesthesia Assessment: Chart Reviewed Documented by User: Lynda Sandoval DO 03/03/24 13:32 HPI - Anesthesia Eval Consult details Narrative: 39yo F for excision of this duct/cyst area of the left breast Medically optimized per PCP Smoker - 5 cigarettes daily PMFSH Family History Family History (Updated 02/26/24 @ 07:59 by Jenae Pa [employer]LO[employer] POWDER MIXER) Maternal Grandmother Cervical cancer Mother Addiction to drug Father Addiction to drug Brother No problems noted. Other Mental health disorder Substance use disorder Family history of problems with anesthesia: No Surgical History Surgical History (Updated 02/26/24 @ 08:16 by Sejal Xavier PA-C) History of mandibular surgery History of Problems with Anesthesia: No Social History Social History (Updated 02/17/24 @ 09:22 by ISAIAH Saldaña) Housing: Apartment Alcohol intake: current Alcohol intake frequency: holidays/special occasions only Patient Tobacco Use Status: Current everyday Tobacco user Tobacco use type: Cigarette Cigarettes Per Day: 5 e-Cigarette/Vaping Use: Currently Using Second Hand Smoke Exposure: Yes Use of substances other than those prescribed or required for medical reasons: Yes Substance Use Type: Marijuana Are you DNR?: No Advance Directives: No Advance Directives Information Provided: Yes service: No Current occupational status: employed 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 Current occupational exposures/hazards: No Cognitive needs: No Hearing needs: No Vision needs: Yes Meds Allergies Allergy/AdvReac Type Severity Reaction Status Date / Time No Known Allergies Allergy Verified 03/03/24 12:08 Exam Exam Date and Time: 03/03/24 1330 Height,Weight and Vital Signs: Height 5 ft 2 in Weight 68.946 kg Vital Signs Temperature 97.8 F 03/03/24 12:22 Pulse Rate 68 03/03/24 12:22 Respiratory Rate 16 03/03/24 12:22 Blood Pressure 103/67 03/03/24 12:22 Pulse Oximetry 96 03/03/24 12:22 Oxygen Delivery Method Room Air 03/03/24 12:22 Temperature 97.8 F 03/03/24 12:22 Pulse Rate 68 03/03/24 12:22 Respiratory Rate 16 03/03/24 12:22 Blood Pressure 103/67 03/03/24 12:22 Pulse Oximetry 96 03/03/24 12:22 Oxygen Delivery Method Room Air 03/03/24 12:22 Airway Mallampati Class: I TM Dist: >3cm Neck ROM: Full Denture: Upper Heart: S1S2 Lungs: CTAB Assessment and Plan Assessment Anesthesia Assessment: Anesthesia Plan Discussed and Chart Reviewed Final Anesthetic Review Family History of Problems with Anesthesia: No History of Problems with Anesthesia: No NPO: Yes ASA Class: II Final Preanesthetic Review: No Changes in Pt Med Stat, Meds/Allgs Chart Reviewed, Consent Obtained/Reviewed and Anes Risks/Benef Reviewed Patient Risk: Low Procedure Risk: Low Anesthetic Plan Anesthetic Plan: MAC: and Agree w/ Assess. and Plan Disposition: Standard PACU
--- NOTE | 2024-03-03 14:22 | W.PM.OPN ---
Operative Note Operative Note Date of Service: 03/03/24 Narrative: Preoperative diagnosis: [] Left subareolar/Mindy areolar draining sinus tract Postop diagnosis: [] The same Procedure [] excision left Mindy areolar sinus tract and underlying cyst Surgeon: [] Phil Toy Department Manager: [] Iris Type of Anesthesia: [] MAC Indication for surgery: [] Patient has at the 9 o'clock position chronic draining sinus tract. This has been incised and drained several times in the past. No patient presents for elective excision of this area. Intraoperative findings demonstrating a sinus tract extending from the 9 o'clock position just outside the areola to the subareolar area. Entire affect area was excised using BOVIE.Final specimen size appr 5 x 4 cm. Findings: [] Patient brought to the operating room, placed on operative table supine position, after an adequate level of MAC anesthesia was induced, left breast prepped and draped in usual sterile fashion using a by elliptical curvilinear incision extending from a proximally 12 o'clock position to 7 o'clock position along the left areolar margin, this carried down through skin, subcutaneous tissue, were a sinus tract was dissected down and excised extending down to the deep subareolar area. Specimen sent to pathology. Wound was irrigated, and secured hemostasis. Areola was well vascularized at completion of the procedure. The wound was closed using interrupted inverted dermal 3-0 Vicryl sutures to reapproximate the areola to the surrounding breast tissue. Steri-Strips and sterile dressings were applied. Wound was infiltrated at the beginning and at the end with 1% lidocaine and 0.5% Marcaine. Sponge, needle, and instrument counts were reported correct. Patient tolerated the procedure well and emerged from anesthesia stable condition. EBL minimal
[2024-03-03 14:29] VITALS: BP 99/60; PULSE 60; RESP 16; TEMP 36.1; O2SAT 100
[2024-03-03 14:35] VITALS: BP 92/50; PULSE 64; RESP 14; O2SAT 100
[2024-03-03 14:40] VITALS: BP 93/49; PULSE 58; RESP 15; O2SAT 100
[2024-03-03 14:45] VITALS: BP 111/75; PULSE 77; RESP 14; O2SAT 98
[2024-03-03 15:00] VITALS: BP 107/67; PULSE 65; RESP 16; TEMP 36.1; O2SAT 99
== END 2024-03-03 15:35 | disposition home or self-care (01) ==
PROVIDERS: Nurse Practitioner; Visit Provider Surgery
PROC: (CPT 19120; principal; 2024-03-03 13:30)
DX: N61.1 Abscess of the breast and nipple (principal); N60.02 Solitary cyst of left breast; N60.32 Fibrosclerosis of left breast; F43.10 Post-traumatic stress disorder, unspecified; F41.9 Anxiety disorder, unspecified; J34.2 Deviated nasal septum; Z79.1 Long term (current) use of non-steroidal anti-inflammatories (NSAID); Z79.899 Other long term (current) drug therapy; Z88.8 Allergy status to other drugs, medicaments and biological substances; F17.210 Nicotine dependence, cigarettes, uncomplicated
CPT/HCPCS: 19120; 81025; 88305; 88307; J0690; J2250; J2704; J2795; J3010

== ENCOUNTER → 2024-03-03 11:12 | Outpatient (BNV) | payer OTHER, SELFPAY | PROVIDERS: Visit Provider Surgery | DX: N61.1 Abscess of the breast and nipple (principal) | CPT/HCPCS: 19120 ==

== ENCOUNTER 2024-03-15 09:52 | Outpatient (AMB) | payer OTHER, SELFPAY ==
--- NOTE | 2024-03-15 09:56 | MHC.OFFVIS ---
Intake Visit Reasons: S/P WLE Lt. deondre-areolar mass Intake Note: Patient here s/p WLE lt deondre areolar mass on 03-03-2024. Reports incision opened wide last night. Patient c/o: oozing, tender to touch. Junior Programmer Required: No Accompanied by: Self / Same As Patient Allergies No Known Allergies Allergy (Verified 03/15/24 09:57) HPI Comments Details: Patient was in for follow-up. She had some drainage when she removed the dressing other day which was clear in nature but otherwise doing relatively well. She has minimal incisional discomfort. Pathology was reviewed and is benign [facility] [place] Surgical History (Updated 02/26/24 @ 08:16 by Sejal Xavier PA-C) History of mandibular surgery Family History (Updated 02/26/24 @ 07:59 by Jenae Pa CMA) Maternal Grandmother Cervical cancer Mother Addiction to drug Father Addiction to drug Brother No problems noted. 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 Eschar over areola but otherwise healing well with no evidence of any infection. Assessment & Plan Assessment & Plan (1) Occlusion of lactiferous duct of left breast: Code(s): N64.89 - Other specified disorders of breast Category: Surgical (2) Postop check: Code(s): Z09 - Encounter for follow-up examination after completed treatment for conditions other than malignant neoplasm Category: Medical Plan Patient was been given local instructions and will otherwise follow-up p.r.n.. All questions answered. Coding Level of Care Code Global (01467) Diagnoses Occlusion of lactiferous duct of left breast N64.89 Postop check Z09
== END 2024-03-15 10:01 | disposition home or self-care (01) ==
PROVIDERS: Visit Provider Surgery
DX: N64.89 Other specified disorders of breast (principal); Z09 Encounter for follow-up examination after completed treatment for conditions other than malignant neoplasm
CPT/HCPCS: 99024

== ENCOUNTER → 2024-03-15 09:52 | Outpatient (BNVA) | payer OTHER, SELFPAY | PROVIDERS: Visit Provider Surgery | DX: Z09 Encounter for follow-up examination after completed treatment for conditions other than malignant neoplasm (principal); N64.89 Other specified disorders of breast; F17.210 Nicotine dependence, cigarettes, uncomplicated; Z98.890 Other specified postprocedural states | CPT/HCPCS: 99212 ==

== ENCOUNTER 2024-10-24 10:09 | Outpatient (REF) | payer OTHER, SELFPAY ==
[2024-10-24 10:26] LABS: MANUAL DIFF FLAG NO
--- OUTSIDE RECORDS SUMMARY | 2024-10-24 10:38 | XMS_ITS | Clinical Summary ---
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 Name Role Phone Unavailable Primary Care Provider Unavailabl e Social History Tobacco Use Types Packs/Day Years Used Date Smoking Tobacco: Never Assessed Comments Unknown Sex and Gender Information Value Date Recorded Sex Assigned at Not on file Legal Sex Female 1:39 PM EDT Gender Identity Not on file Sexual Orientation Not on file Plan of Treatment Health Maintenance Due Date Last Done Comments DTaP,Tdap,and Td Vaccines (1 - Tdap) 01/25/2004 Hepatitis B Vaccines (1 of 3 - 19+ 3-dose series) 01/25/2004 Cervical Cancer Screening: P ap Smear 2006 Cholesterol Screening (Lipid Panel) 01/06/2024 Depression Screening 01/06/2024 HIV Screening 01/06/2024 Hepatitis C Screening 01/06/2024 Social Influencers of Health Screening 01/06/2024 COVID-19 Vaccine (2023-2 5 season) 2024 Influenza Vaccine (Season Ended) 2025 HIB Vaccines Aged Out No longer eligi ble based on patient's age to complete this topic HPV Vaccines Aged Out No longer eligi ble based on patient's age to complete this topic Hepatitis A Vaccines Aged Out No long er eligible based on patient's age to complete this topic IPV Vaccines Aged Out No longer eligi ble based on patient's age to complete this topic MMR Vaccines Aged Out No longer eligi ble based on patient's age to complete this topic Meningococcal ACWY Vaccine Aged Out N o longer eligible based on patient's age to complete this topic Meningococcal B Vaccine Aged Out No l onger eligible based on patient's age to complete this topic Pneumococcal Vaccine: Pediat rics (0 to 5 Years) and At-Risk Patients (6 to 64 Years) Aged Out No longer eligible b ased on patient's age to complete this topic RSV Immunization Patients Un harjinder 20 months Aged Out No longer eligible b ased on patient's age to complete this topic Varicella Vaccines Aged Out No longer eligible based on patient's age to complete this topic Insurance [place]ICA[place] - [place] [facility]
--- OUTSIDE RECORDS SUMMARY | 2024-10-24 10:38 | XMS_ITS | Data Portability ---
Author Organization DENIZ Silva [facility] [facility], [address] Address [address] [place] [address] Assessment No assessment recorded. Plan of Treatment Reminders Order Date Submit Date Provider Last Modified By Organization Details Last Modified Time Details Appointments None record ed. Lab None record ed. Referral None record ed. Procedures None record ed. Surgeries None record ed. Imaging None record ed. Medication Orders None record ed. Patient TargetsNo targets recorded. 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 Medical Equipment None Reported. Medications Name Sig Start Date Stop Date Status Note LastModified by Organization Details LastModified Time clindamycin HCl 300 mg capsule TAKE 1 CAPSULE (300 MG TOTAL) BY MOUTH TWO TIMES A DAY FOR 7 DAYS. active Not Available Not Available No t Available ciprofloxacin 500 mg tablet TAKE 1 TABLET BY MOUTH TWICE A DAY FOR 7 DAYS active Not Available Not Available No t Available tramadol 50 mg tablet TAKE 1 TABLET BY MOUTH EVERY 6 HOURS NEEDED FOR MODERATE PAIN ( SCORE 4-6) active Not Available Not Available No t Available quetiapine 100 mg tablet TAKE ONE HALF (0.5) TABLETS BY MOUTH EVERY MORNING AND ONE (1) TABLET AT BEDTIME active Not Available Not Available No t Available lamotrigine 25 mg tablet TAKE ONE (1) TABLET DAILY FOR TWO WEEKS, THEN INCREASE TO TWO (2) TABLETS BY MOUTH DAILY active Not Available Not Available No t Available pantoprazole 20 mg tablet,delayed release TAKE 2 TABLETS (40 MG TOTAL) BY MOUTH DAILY. active Not Available Not Available No t Available hydroxyzine HCl 25 mg tablet TAKE ONE (1) TABLET BY MOUTH TWICE A DAY, NEEDED FOR ANXIETY active Not Available Not Available No t Available ergocalciferol (vitamin D2) 1,250 mcg (50,000 unit) capsule TAKE 1 CAPSULE BY MOUTH ONE TIME PER WEEK active Not Available Not Available No t Available ondansetron 4 mg disintegrating tablet TAKE 1 TABLET BY MOUTH EVERY 8 HOURS NEEDED FOR NAUSEA AND VOMITING active Not Available Not Available No t Available nabumetone 500 mg tablet TAKE 1 TABLET BY MOUTH TWICE A DAY active Not Available Not Available No t Available Vitals Date Recorded Body height Body mass index (BMI) Body weight Oxygen saturation Oxygen saturation in Arterial blood by Pulse oximetry Heart rate Respiratory rate Body temperature Systolic blood pressure Diastolic blood pressure Provider Name and Address Organization Details Last Updated DateTime 3 157.48 cm 28.3 kg/m2 70757.8 2 g 99 % 99 % 75 /min 16 /min 97.8 [degF] 126 mm[Hg] 75 mm[Hg] RICHARD CASIANO PA - [facility] 3 15:13:53 Social History None recorded. Functional Status None recorded. Mental Status None recorded. Family History Nothing Reported. Medical History No medical history recorded. Gynecological HistoryNo gynecological history recorded. 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 [id number] Z02.4 Health Concerns Section Related Observation LastModified by Organization Detai ls LastModified Time None Recorded Concern Status LastModified by Organization Details LastModified Time None Recorded Advance Directives Directive None Recorded Payers Insurance Date Sequence Insurance Name Policy Number Policy Trevino Covered Member ID Trevino Member ID Guarantor Name 08/27/2022 PAY AT [facility] Polly Bender DRIVING PERMIT DRIVING PERMIT Polly Bender 08/26/2022 DO NOT USE Polly Bender DRIVING PERMIT DRIVING PERMIT Polly Bneder 08/26/2022 1 [facility] (MEDICAID HMO) [id number] Polly Bender [id number] Polly Bender OBGyn Episode No OBEpisode recorded.
[2024-10-24 11:23] LABS: Basophils Absolute Auto 0.1 X10*3/uL (0.0-0.2); Basophils Percent Auto 0.8 % (0-2); Eosinophils Absolute Auto 0.3 X10*3/uL (0.0-0.4); Eosinophils Percent Auto 2.4 % (0-4); Hematocrit 46.7 % (37.0-47.0); Hemoglobin 15.3 g/dl (12.0-16.0); Imm Gran Abs Auto 0.04 X10*3/uL (0.00-0.03); Imm Gran Pct Auto 0.4 % (0.0-0.4); Lymphocytes Absolute Auto 3.3 X10*3/uL (1.2-4.9); Lymphocytes Percent Auto 31.5 % (20-40); Mean Corpuscular HGB Conc 32.8 g/dl (31.0-35.0); Mean Corpuscular Volume 85.5 fL (80.0-98.0); Mean Platelet Volume 9.8 fL (9.4-12.3); Neutrophils Absolute Auto 5.9 x10*3/uL (2.0-8.3); Neutrophils Percent Auto 55.9 % (45-73); Platelet Count 511 X10*3/uL (160-400); Red Blood Count 5.46 X10*6/uL (4.20-5.50); Red Cell Distribution Width 13.2 % (11.0-16.0); White Blood Count 10.6 X10*3/uL (4.8-10.8)
[2024-10-24 11:55] LABS: Alanine Aminotransferase 17 U/L (0-31); Albumin Level 4.5 g/dL (3.5-5.0); Anion Gap 14 (12-20); Aspartate Amino Transferase 18 U/L (5-31); Bilirubin Total 0.3 mg/dL (0.0-1.0); Blood Urea Nitrogen 10 mg/dL (9-16); Carbon Dioxide 28 mmol/L (22-29); Chloride 101 mmol/L (96-108); Estimated Glomerular Filt Rate > 60; Glucose Random 101 mg/dL (60-115); Potassium 3.7 mmol/L (3.3-5.1); Sodium 139 mmol/L (135-145)
[2024-10-24 12:01] LABS: Free T4 (Free Thyroxine) 0.83 ng/dL (0.71-1.85); Thyroid Stimulating Hormone 1.43 uIU/mL (0.32-4.0); Vitamin D 25-OH Total 13.5 ng/mL (>30)
[2024-10-24 12:22] LABS: Alkaline Phosphatase 79 U/L (39-117)
[2024-10-24 12:40] LABS: Lithium 0.43 mmol/L (0.60-1.20)
== END 2024-10-24 10:10 | disposition home or self-care (01) ==
LOC: HO.LAB 10:09
PROVIDERS: Visit Provider Counselor Addiction (Substance Use Disorder)
DX: F31.4 Bipolar disorder, current episode depressed, severe, without psychotic features (principal); Z79.899 Other long term (current) drug therapy
CPT/HCPCS: 36415; 80053; 80178; 82306; 84439; 84443; 85025